=== PATIENT | female | born 1940 | race African-American/Black ===

== ENCOUNTER 2016-08-16 10:58 | Emergency (ER) | payer OTHER ==
[~2016-08-16] VITALS: Ht 167.6 cm; Wt 86.2 kg
[~2016-08-16 10:58] MED LIST: EPOE1VIA7 IJ; FERR-58 PO; FOLI1TAB16 PO; HUM3INSU SQ; LABE100T PO
--- NOTE | 2016-08-16 11:15 | NUR ---
AAOX3, CAME TO ER C/O L BREAST DISCOLORATION/BRUISE; NOTED LAST NIGHT; NO TRAUMA; NO PAIN; NO FEVER OR CHILLS; ESRD - DIALYSIS - DONE 08/14/2016. RESP IS EVEN AND UNLABORED WITH NAD NOTED. SKIN IS WARM AND DRY. DR INFANTE AT BS FOR EVAL.
[2016-08-16 11:34] LABS: BASOPHILS % (AUTO) 0.3 % (0.0-2.0); EOSINOPHILS # (AUTO) 0.3 /CMM (0.0-0.7); EOSINOPHILS % (AUTO) 4.6 % (0.0-6.0); HEMATOCRIT 35 % (33-45); HEMOGLOBIN 11.3 g/dL (11.5-14.8); LYMPHOCYTES # (AUTO) 1.3 /CMM (0.8-4.8); LYMPHOCYTES % (AUTO) 18.2 % (20.0-44.0); MEAN CORPUSCULAR HEMOGLOBIN 28 PG (26.0-33.0); MEAN CORPUSCULAR HGB CONC 32 g/dl (31.0-36.0); MEAN CORPUSCULAR VOLUME 87 fL (82-100); MONOCYTES # (AUTO) 0.8 /CMM (0.1-1.30); MONOCYTES % (AUTO) 10.4 % (2.0-12.0); NEUTROPHILS # (AUTO) 4.9 /CMM (1.8-8.9); NEUTROPHILS % (AUTO) 66.5 % (43.0-81.0); PLATELET COUNT (AUTO) 237 /CMM (150-450); RDW COEFFICIENT OF VARIATION 13.4 (11.5-15.0); RED BLOOD CELL COUNT(AUTO) 4.02 MIL/uL (4.0-5.2); WHITE BLOOD COUNT (AUTO) 7.4 K/uL (4.3-11.0)
[2016-08-16 11:43] LABS: CALCIUM, SERUM 9.1 mg/dL (8.5-10.1); CREATININE 6.6 mg/dL (0.6-1.3); POTASSIUM 4.2 mmol/L (3.5-5.1)
[2016-08-16 11:49] LABS: INR 1.07 (0.87-1.13); PROTHROMBIN TIME 11.1 SECS (9.5-12.7)
--- NOTE | 2016-08-16 12:44 | NUR ---
Patient discharged to home in stable condition. Written and verbal after care instructions given. Patient verbalizes understanding of instruction.
[2016-08-16 12:45] VITALS: BP 132/76
== END 2016-08-16 12:45 | disposition home or self-care (01) ==
LOC: ER 11:04
DX: R23.3 Spontaneous ecchymoses (principal); E11.9 Type 2 diabetes mellitus without complications; I10 Essential (primary) hypertension; Z79.4 Long term (current) use of insulin; Z88.8 Allergy status to other drugs, medicaments and biological substances
CPT/HCPCS: 36415; 80048-TC; 85025-TC; 85730-TC; A4606; Z7610

== ENCOUNTER 2016-09-15 21:12 | Emergency (ER) | payer OTHER ==
[~2016-09-15] VITALS: Ht 162.6 cm; Wt 63.5 kg
--- NOTE | 2016-09-15 21:55 | NUR ---
PT AMBULATORY TO ER BED 6 PT C/O HEAD PAIN S/P FALLING YESTERDAY PT DENIES LOC. PT AOX4 RR EVEN AND UNLABORED. NO SOB NOTED. NAD NOTED. NO NVD AT THIS TIME. PT NOT DIAPHORETIC. PT GOWNED AND PLACED ON MONITOR. PT NOTED WITH LFA HD SITE, THRILL AND BRUIT NOTED. PT ALSO NOTED WITH BLE SWELLING. PT WAITING FOR MD SANDRA.
--- NOTE | 2016-09-15 22:10 | NUR ---
DR. MOTLEY AT BEDSIDE FOR EVAL.
--- NOTE | 2016-09-15 22:21 | NUR ---
LAB AT BEDSIDE FOR BLOOD DRAW.
--- NOTE | 2016-09-15 22:33 | NUR ---
PT TO CT VIA W/C
[2016-09-15 22:44] LABS: BASOPHILS % (AUTO) 0.5 % (0.0-2.0); EOSINOPHILS # (AUTO) 0.3 /CMM (0.0-0.7); EOSINOPHILS % (AUTO) 4.9 % (0.0-6.0); HEMATOCRIT 31 % (33-45); HEMOGLOBIN 9.9 g/dL (11.5-14.8); LYMPHOCYTES # (AUTO) 1.8 /CMM (0.8-4.8); MEAN CORPUSCULAR HEMOGLOBIN 28 PG (26.0-33.0); MEAN CORPUSCULAR HGB CONC 33 g/dl (31.0-36.0); MEAN CORPUSCULAR VOLUME 87 fL (82-100); MONOCYTES # (AUTO) 0.8 /CMM (0.1-1.30); MONOCYTES % (AUTO) 11.1 % (2.0-12.0); NEUTROPHILS # (AUTO) 3.9 /CMM (1.8-8.9); NEUTROPHILS % (AUTO) 57.5 % (43.0-81.0); PLATELET COUNT (AUTO) 225 /CMM (150-450); RDW COEFFICIENT OF VARIATION 14.6 (11.5-15.0); RED BLOOD CELL COUNT(AUTO) 3.51 MIL/uL (4.0-5.2); WHITE BLOOD COUNT (AUTO) 6.8 K/uL (4.3-11.0)
[2016-09-15 22:57] LABS: INR 1.02 (0.87-1.13); PROTHROMBIN TIME 10.9 SECS (9.5-12.7)
[2016-09-15 22:59] LABS: CALCIUM, SERUM 8.9 mg/dL (8.5-10.1); CARBON DIOXIDE 28 mmol/L (21-32); CHLORIDE 97 mmol/L (98-107); CREATININE 6.7 mg/dL (0.6-1.3); GLUCOSE 87 mg/dL (74-106); POTASSIUM 4.7 mmol/L (3.5-5.1); SODIUM SERUM 135 mmol/L (136-145); UREA NITROGEN, BLOOD 35 mg/dL (7-18)
[2016-09-15 23:50] VITALS: BP 160/74
== END 2016-09-15 23:53 | disposition home or self-care (01) ==
LOC: ER 21:12
DX: R51 Headache (principal); S09.90XA Unspecified injury of head, initial encounter; E11.9 Type 2 diabetes mellitus without complications; I10 Essential (primary) hypertension; M31.6 Other giant cell arteritis; Z79.4 Long term (current) use of insulin; M48.02 Spinal stenosis, cervical region; W01.198A Fall on same level from slipping, tripping and stumbling with subsequent striking against other object, initial encounter; Y92.89 Other specified places as the place of occurrence of the external cause; Y93.89 Activity, other specified; Y99.8 Other external cause status; Z88.8 Allergy status to other drugs, medicaments and biological substances
CPT/HCPCS: 36415; 70450; 72125; 80048; 85025; 85610; 99285; A4606; Z7610

== ENCOUNTER 2016-09-19 16:59 | Emergency (ER) | payer OTHER ==
[~2016-09-19] VITALS: Ht 167.6 cm; Wt 86.2 kg
[2016-09-19 16:59] VITALS: BP 159/77
== END 2016-09-19 17:57 | disposition home or self-care (01) ==
LOC: ER 17:01
DX: L76.22 Postprocedural hemorrhage of skin and subcutaneous tissue following other procedure (principal); I12.0 Hypertensive chronic kidney disease with stage 5 chronic kidney disease or end stage renal disease; E11.22 Type 2 diabetes mellitus with diabetic chronic kidney disease; N18.6 End stage renal disease; Z88.8 Allergy status to other drugs, medicaments and biological substances; N64.59 Other signs and symptoms in breast; Z79.4 Long term (current) use of insulin
CPT/HCPCS: 99282; A4606; Z7610

== ENCOUNTER 2016-10-19 04:10 | Emergency (ER) | payer OTHER | END 2016-10-19 04:42 | disposition left against medical advice (07) | LOC: ER 04:16 | DX: Z53.21 Procedure and treatment not carried out due to patient leaving prior to being seen by health care provider (principal) ==

== ENCOUNTER 2017-02-05 22:42 | Emergency (ER) | payer OTHER ==
[~2017-02-05] VITALS: Ht 167.6 cm; Wt 108.9 kg
[2017-02-05 22:42] VITALS: BP 143/76
[2017-02-05] MEDS ORDERED: TDAP [DIPH/PERTUSSIS/TET] 0.5 ML VIAL IM ONE ×2 (23:04→23:30)
[2017-02-05] MEDS ORDERED: KETOROLAC TROMETHAMINE INJ 30 MG/ML VIAL ONE (23:14)
[2017-02-05] MEDS ORDERED: KETOROLAC TROMETHAMINE INJ 30 MG/ML VIAL IV ONE (23:30)
== END 2017-02-05 23:21 | disposition home or self-care (01) ==
LOC: ER 22:42
DX: S90.415A Abrasion, left lesser toe(s), initial encounter (principal); I12.9 Hypertensive chronic kidney disease with stage 1 through stage 4 chronic kidney disease, or unspecified chronic kidney disease; E11.22 Type 2 diabetes mellitus with diabetic chronic kidney disease; N18.9 Chronic kidney disease, unspecified; Z99.2 Dependence on renal dialysis; Z23 Encounter for immunization; Z88.8 Allergy status to other drugs, medicaments and biological substances; Z98.890 Other specified postprocedural states; Z79.4 Long term (current) use of insulin; X58.XXXA Exposure to other specified factors, initial encounter; Y93.89 Activity, other specified; Y92.89 Other specified places as the place of occurrence of the external cause; Y99.8 Other external cause status
CPT/HCPCS: 90471; 90715; 99283; A4606; J1885; A6402; Z7610

== ENCOUNTER 2017-02-20 04:16 | Emergency (ER) | payer OTHER ==
[~2017-02-20] VITALS: Ht 167.6 cm; Wt 89.4 kg
[2017-02-20] MEDS ORDERED: hydrALAZINE HCL IV 20 MG VIAL ONE (04:36)
--- NOTE | 2017-02-20 04:50 | NUR ---
PT CAME FROM NURSING FACILITY, C/O FEELING DIZZY, PT A/O X 4, BREATHING EVEN/UNLABORED, FISTUA TO L WRIST [facility] DIALYS[facility] M/W/F, BLE EDEMA, SKIN WARM/DRY, NO C/O PAIN STATES " I STOOD UP, AND WAS BESIDE MY DRESSER AND FELT MYSELF GOING BACK AND FORTH"
[2017-02-20 04:58] LABS: BASOPHILS % (AUTO) 0.7 % (0.0-2.0); EOSINOPHILS # (AUTO) 0.3 /CMM (0.0-0.7); EOSINOPHILS % (AUTO) 4.4 % (0.0-6.0); HEMATOCRIT 36 % (33-45); HEMOGLOBIN 11.6 g/dL (11.5-14.8); LYMPHOCYTES # (AUTO) 1.3 /CMM (0.8-4.8); MEAN CORPUSCULAR HEMOGLOBIN 28 PG (26.0-33.0); MEAN CORPUSCULAR HGB CONC 33 g/dl (31.0-36.0); MEAN CORPUSCULAR VOLUME 86 fL (82-100); MONOCYTES # (AUTO) 0.6 /CMM (0.1-1.30); MONOCYTES % (AUTO) 9.2 % (2.0-12.0); NEUTROPHILS % (AUTO) 64.7 % (43.0-81.0); PLATELET COUNT (AUTO) 181 /CMM (150-450); RDW COEFFICIENT OF VARIATION 15.2 (11.5-15.0); RED BLOOD CELL COUNT(AUTO) 4.17 MIL/uL (4.0-5.2); WHITE BLOOD COUNT (AUTO) 6.2 K/uL (4.3-11.0)
[2017-02-20] MEDS ORDERED: hydrALAZINE HCL IV 20 MG VIAL IV ONE (05:00)
--- NOTE | 2017-02-20 05:38 | NUR ---
LAB BEDSIDE FOR REDRAW AT THIS TIME
--- NOTE | 2017-02-20 05:55 | NUR ---
PT SITTING IN BED TALKING ON PHONE, BREATHING EVEN/UNLABORED, GAS TENDER IN PLACE NSR, NAD NOTED, FAMILY IS BEDSIDE
--- NOTE | 2017-02-20 05:58 | NUR ---
PT AMBULATED TO RESTROOM, NO GAIT DISTURBANCES
[2017-02-20 06:08] LABS: CALCIUM, SERUM 10.1 mg/dL (8.5-10.1); CARBON DIOXIDE 26 mmol/L (21-32); CHLORIDE 101 mmol/L (98-107); GLUCOSE 105 mg/dL (74-106); POTASSIUM 5.1 mmol/L (3.5-5.1); SODIUM SERUM 138 mmol/L (136-145); UREA NITROGEN, BLOOD 36 mg/dL (7-18)
[2017-02-20 06:11] LABS: CREATININE 7.6 mg/dL (0.6-1.3)
[2017-02-20 06:14] LABS: TROPONIN I 0.034 ng/mL (0.00-0.056)
--- NOTE | 2017-02-20 07:02 | NUR ---
PER CORNEL HINTON "OK TO KEEP UNTIL BEFORE NEW DIALYSIS APPOINTMENT TIME @0800
[2017-02-20 07:44] VITALS: BP 149/86
== END 2017-02-20 07:45 | disposition home or self-care (01) ==
LOC: ER 04:17
DX: I10 Essential (primary) hypertension (principal); E11.9 Type 2 diabetes mellitus without complications; N19 Unspecified kidney failure; Z79.4 Long term (current) use of insulin; Z99.2 Dependence on renal dialysis; Z88.8 Allergy status to other drugs, medicaments and biological substances
CPT/HCPCS: 36415; 70450; 71010; 80048; 82962; 84484; 85025; 93005; 96374; 99285; A4606; J0360; Z7610

== ENCOUNTER 2017-08-02 00:48 | Emergency (ER) | payer MEDICARE, OTHER ==
[~2017-08-02] VITALS: Ht 167.6 cm; Wt 89.4 kg
[~2017-08-02 00:48] MED LIST changes: -FERR-58 PO; +FERR325T27 PO; -LABE100T PO; +LABE100T5 PO
--- NOTE | 2017-08-02 00:48 | NUR ---
BB SELF; "NOSE BLEED SINCE9 PM" VSS NAD A/OX4. WILL CONTINUE TO MONITOR FOR ANY CHANGES DURING THE SHIFT.
[2017-08-02 01:31] VITALS: BP 156/76
== END 2017-08-02 02:36 | disposition home or self-care (01) ==
LOC: ER 00:51
DX: R04.0 Epistaxis (principal); Z79.4 Long term (current) use of insulin; I12.9 Hypertensive chronic kidney disease with stage 1 through stage 4 chronic kidney disease, or unspecified chronic kidney disease; E11.22 Type 2 diabetes mellitus with diabetic chronic kidney disease; N18.9 Chronic kidney disease, unspecified; Z88.8 Allergy status to other drugs, medicaments and biological substances; Z99.2 Dependence on renal dialysis
CPT/HCPCS: A4606; Z7610

== ENCOUNTER 2017-09-09 21:10 | Emergency (ER) | payer MEDICARE, OTHER ==
[~2017-09-09] VITALS: Ht 167.6 cm; Wt 81.6 kg
--- NOTE | 2017-09-09 21:49 | NUR ---
PT BIBSELF AMBULATORY TO ER BED 11 FOR "DARK STOOLS X2 TODAY AFTER TAKING KAYEXALATE YESTERDAY AT [facility]" "MISSED DIALYSIS TODAY DUE TO DIARRHEA" PT AOX3 RR EVEN AND UNLABORED. NO SOB NOTED. NAD NOTED. NO NVD AT THIS TIME. PT GOWNED AND PLACED ON MONITOR WAITING FOR MD SANDRA.
--- NOTE | 2017-09-09 22:21 | NUR ---
DR. ROBERT AT BEDSIDE FOR MD BOAZ AT BEDSIDE FOR OCCULT STOOL CHECK.
--- NOTE | 2017-09-09 22:32 | NUR ---
LAB AT BEDSIDE FOR BLOOD DRAW
[2017-09-09 22:40] LABS: BASOPHILS % (AUTO) 0.4 % (0.0-2.0); EOSINOPHILS % (AUTO) 3.4 % (0.0-6.0); HEMATOCRIT 31 % (33-45); HEMOGLOBIN 10.2 g/dL (11.5-14.8); LYMPHOCYTES # (AUTO) 1.3 /CMM (0.8-4.8); LYMPHOCYTES % (AUTO) 20.8 % (20.0-44.0); MEAN CORPUSCULAR HGB CONC 33 g/dl (31.0-36.0); MEAN CORPUSCULAR VOLUME 85 fL (82-100); MONOCYTES # (AUTO) 0.6 /CMM (0.1-1.30); MONOCYTES % (AUTO) 8.8 % (2.0-12.0); NEUTROPHILS # (AUTO) 4.3 /CMM (1.8-8.9); NEUTROPHILS % (AUTO) 66.6 % (43.0-81.0); PLATELET COUNT (AUTO) 256 /CMM (150-450); RDW COEFFICIENT OF VARIATION 17.3 (11.5-15.0); RED BLOOD CELL COUNT(AUTO) 3.61 MIL/uL (4.0-5.2); WHITE BLOOD COUNT (AUTO) 6.4 K/uL (4.3-11.0)
[2017-09-09 22:56] LABS: OCCULT BLOOD STOOL POSITIVE (NEGATIVE)
[2017-09-09 23:02] LABS: ALANINE AMINOTRANSFERASE 15 U/L (12-78); ALBUMIN 3.4 g/dL (3.4-5.0); ALKALINE PHOSPHATASE 94 U/L (46-116); ASPARTATE AMINOTRANSFERASE 19 U/L (15-37); BILIRUBIN,DIRECT 0.1 mg/dL (0.0-0.2); BILIRUBIN,TOTAL 0.4 mg/dL (0.2-1.0); CALCIUM, SERUM 8.6 mg/dL (8.5-10.1); CARBON DIOXIDE 20 mmol/L (21-32); CHLORIDE 98 mmol/L (98-107); GLUCOSE 104 mg/dL (74-106); POTASSIUM 4.8 mmol/L (3.5-5.1); SODIUM SERUM 135 mmol/L (136-145); TOTAL PROTEIN, SERUM 8.3 g/dL (6.4-8.2); UREA NITROGEN, BLOOD 69 mg/dL (7-18)
[2017-09-09 23:03] LABS: CREATININE 8.7 mg/dL (0.6-1.3)
[2017-09-09 23:04] LABS: MAGNESIUM 1.9 mg/dL (1.8-2.4); PHOSPHORUS 6.6 mg/dL (2.5-4.9)
[2017-09-09] MEDS ORDERED: CLONIDINE HCL 0.1 MG TABLET PO ONE (23:30)
[2017-09-09] MEDS ORDERED: CLONIDINE HCL 0.1 MG TABLET ONE (23:30)
--- NOTE | 2017-09-09 23:50 | NUR ---
PT PROVIDED WITH FOOD. RAY PER DR. ROBERT.
--- NOTE | 2017-09-10 00:10 | NUR ---
DPatient discharged to home in stable condition. Written and verbal after care instructions given. Patient verbalizes understanding of instruction. ambulatory with a steady gait
[2017-09-10 00:11] VITALS: BP 163/79
== END 2017-09-10 00:12 | disposition home or self-care (01) ==
LOC: ER 21:15
DX: K92.2 Gastrointestinal hemorrhage, unspecified (principal); D64.9 Anemia, unspecified; I12.0 Hypertensive chronic kidney disease with stage 5 chronic kidney disease or end stage renal disease; E11.22 Type 2 diabetes mellitus with diabetic chronic kidney disease; N18.6 End stage renal disease; Z88.8 Allergy status to other drugs, medicaments and biological substances; Z79.4 Long term (current) use of insulin
CPT/HCPCS: 36415; 80048-TC; 80076-TC; 82272-TC; 83735-TC; 84100-TC; 85025-TC; 86850-TC; A4606; Z7610

== ENCOUNTER 2017-09-13 19:49 | Emergency (ER) | payer MEDICARE, OTHER ==
[~2017-09-13] VITALS: Ht 167.6 cm; Wt 88.9 kg
--- NOTE | 2017-09-13 20:00 | NUR ---
BB SELF C/C OF NOSE BLEED X 2 HOURS S/P CAUTERIZATION 2 WEEKSS AGO +HEADACHE PAIN ACROSS FOREHEAD. -N/V
[2017-09-13] MEDS ORDERED: DESMOPRESSIN IV ONE (21:30)
[2017-09-13] MEDS ORDERED: NS 0.9% IV ONE (21:30)
[2017-09-13 22:00] LABS: BASOPHILS % (AUTO) 0.3 % (0.0-2.0); EOSINOPHILS % (AUTO) 2.6 % (0.0-6.0); HEMATOCRIT 30 % (33-45); HEMOGLOBIN 9.8 g/dL (11.5-14.8); LYMPHOCYTES # (AUTO) 1.6 /CMM (0.8-4.8); LYMPHOCYTES % (AUTO) 20.8 % (20.0-44.0); MEAN CORPUSCULAR HGB CONC 32 g/dl (31.0-36.0); MEAN CORPUSCULAR VOLUME 87 fL (82-100); MONOCYTES # (AUTO) 0.6 /CMM (0.1-1.30); MONOCYTES % (AUTO) 8.4 % (2.0-12.0); NEUTROPHILS # (AUTO) 5.2 /CMM (1.8-8.9); NEUTROPHILS % (AUTO) 67.9 % (43.0-81.0); PLATELET COUNT (AUTO) 226 /CMM (150-450); RDW COEFFICIENT OF VARIATION 17.1 (11.5-15.0); WHITE BLOOD COUNT (AUTO) 7.7 K/uL (4.3-11.0)
[2017-09-13 22:15] LABS: CALCIUM, SERUM 8.7 mg/dL (8.5-10.1); CARBON DIOXIDE 22 mmol/L (21-32); CHLORIDE 99 mmol/L (98-107); CREATININE 6.6 mg/dL (0.6-1.3); GLUCOSE 102 mg/dL (74-106); POTASSIUM 5.3 mmol/L (3.5-5.1); SODIUM SERUM 132 mmol/L (136-145); UREA NITROGEN, BLOOD 54 mg/dL (7-18)
[2017-09-13] MEDS ORDERED: DESMOPRESSIN 4 MCG/ML AMPUL ONE (22:18)
[2017-09-13 22:21] LABS: ALANINE AMINOTRANSFERASE 15 U/L (12-78); ALBUMIN 3.6 g/dL (3.4-5.0); ALKALINE PHOSPHATASE 89 U/L (46-116); ASPARTATE AMINOTRANSFERASE 21 U/L (15-37); BILIRUBIN,DIRECT 0.1 mg/dL (0.0-0.2); BILIRUBIN,TOTAL 0.4 mg/dL (0.2-1.0); TOTAL PROTEIN, SERUM 8.4 g/dL (6.4-8.2)
[2017-09-13 22:22] LABS: TROPONIN I 0.017 ng/mL (0.00-0.056)
--- NOTE | 2017-09-13 23:02 | NUR ---
DDAVP 24 MCG GIVEN 6AMP REMAINING IN OMNICELL TIFFANIE COMMERCIAL LENDING ASSISTANT AWARE
--- NOTE | 2017-09-13 23:09 | NUR ---
Patient does not wish to proceed with medical care recommended by (TIFFANIE BELLO ). Patient given information related to possible complications, up to and including , which could occur as a result of leaving the hospital at this time. Patient verbalizes understanding of risks involved due to leaving against medical advice. Patient has signed AMA form.
--- NOTE | 2017-09-13 23:09 | NUR ---
IV removed. Catheter intact and site benign. Pressure and 4x4 applied to site. No bleeding noted.
[2017-09-13 23:12] VITALS: BP 143/80
== END 2017-09-13 23:13 | disposition left against medical advice (07) ==
LOC: ER 19:50
DX: R07.89 Other chest pain (principal); R04.0 Epistaxis; D64.9 Anemia, unspecified; E87.5 Hyperkalemia; Z53.20 Procedure and treatment not carried out because of patient's decision for unspecified reasons; Z88.8 Allergy status to other drugs, medicaments and biological substances
CPT/HCPCS: 36415; 71045-TC; 80048-TC; 80076-TC; 84484-TC; 85025-TC; 85730-TC; 87081-TC; A4216; A4606; J2597; J7060; Z7610

== ENCOUNTER 2017-11-05 17:41 | Emergency (ER) | payer MEDICARE, OTHER ==
[~2017-11-05] VITALS: Ht 167.6 cm; Wt 91.2 kg
--- NOTE | 2017-11-05 18:11 | NUR ---
RECIEVED PT TO ED BED 03, PT IS C/O LEFT LEG LUMP AND PAIN X 1 WEEK, AND SHE IS CONCERNED ABOUT DVT. PT DENIES INJURY. NAD. ALL NEEDS ARE ATTENDED, KEPT COMFORTABLE. SEEN AND EVALUATED BY JANA
[2017-11-05 21:07] VITALS: BP 168/78
== END 2017-11-05 21:07 | disposition home or self-care (01) ==
LOC: ER 17:51
DX: M17.12 Unilateral primary osteoarthritis, left knee (principal); I10 Essential (primary) hypertension; E11.9 Type 2 diabetes mellitus without complications; Z99.2 Dependence on renal dialysis; Z98.890 Other specified postprocedural states; Z88.8 Allergy status to other drugs, medicaments and biological substances; Z60.2 Problems related to living alone; Z79.4 Long term (current) use of insulin
CPT/HCPCS: 73590; 93971; 99284; A4606; Z7610

== ENCOUNTER 2017-11-13 04:11 | Emergency (ER) | payer MEDICARE, OTHER ==
[~2017-11-13] VITALS: Ht 167.6 cm; Wt 88.9 kg
--- NOTE | 2017-11-13 04:20 | NUR ---
pt bib son. pt c/o nose bleed. per pt nose bleed had started earlier in the day, had to miss her dialysis due to her nose bleed. then stopped for some time while at home, but started up again around 1am that has not stopped since then. applied a clamp on the nose to help stop the bleeding. pt waiting comfortably in bed, waiting to be seen by md. Addendum: 11/13/17 at 0511 by KADEEM correction to notes: pt's dialysis was scheuduled at 4am, was unable to have her dialysis bc of her nosebleed that started at 1am, not earlier in the day.
--- NOTE | 2017-11-13 04:25 | NUR ---
pt seen by md. vs stable. pt comfortably in bed. no s/s of acute distress or sob noted.
--- NOTE | 2017-11-13 04:35 | NUR ---
noseclamp applied to nose to help stop the nosebleed. will reasses later to see if the bleeding stopped.
--- NOTE | 2017-11-13 05:30 | NUR ---
seen by md at bedside. the nose clamp has been removed. the nosebleed has subsided, noticebly bleeding less. will monitor to see if the bleeding continues with the noseclamp off.
--- NOTE | 2017-11-13 06:23 | NUR ---
called pt's son nelson to come supervisor opening and picking his mom from the ER. pt is being discharged back home.
--- NOTE | 2017-11-13 06:50 | NUR ---
Patient discharged to home in stable condition. Written and verbal after care instructions given. Patient verbalizes understanding of instruction. Patient was picked up by son. Patient left facility via wheelchair accompanied by staff member. Transported to car safely. No s/s of acute distress or sob noted. VS stable.
[2017-11-13 06:59] VITALS: BP 160/84
== END 2017-11-13 07:01 | disposition home or self-care (01) ==
LOC: ER 04:12
DX: R04.0 Epistaxis (principal); I65.21 Occlusion and stenosis of right carotid artery; E11.9 Type 2 diabetes mellitus without complications; I10 Essential (primary) hypertension; Z99.2 Dependence on renal dialysis; Z88.8 Allergy status to other drugs, medicaments and biological substances; Z60.2 Problems related to living alone; Z79.4 Long term (current) use of insulin
CPT/HCPCS: 99283; A4606; Z7610

== ENCOUNTER 2018-01-20 08:48 | Emergency (ER) | payer OTHER ==
[~2018-01-20] VITALS: Ht 167.6 cm; Wt 88.9 kg
--- NOTE | 2018-01-20 09:03 | NUR ---
[facility], staff noted pt was unresponsive in chair. PT REPORTS FEELING DIZZY DURING DIALYSIS. PT AAOX3, VSS. DENIES CP, SOB, DIZZINESS, N/V, THEODORE, ABD PAIN OR ANY OTHER DISCOMFORT. PT STS " I'M FEELING GOOD ". PT SEEN & EVAL'D BY DR. YANG. PLACED ON FEED MILL MANAGER, NO ECTOPY NOTED. WILL CONT TO MONITOR. SON @ BS.
[2018-01-20 09:16] LABS: BASOPHILS % (AUTO) 0.5 % (0.0-2.0); EOSINOPHILS % (AUTO) 3.1 % (0.0-6.0); HEMATOCRIT 35 % (33-45); HEMOGLOBIN 11.3 g/dL (11.5-14.8); LYMPHOCYTES # (AUTO) 1.2 /CMM (0.8-4.8); LYMPHOCYTES % (AUTO) 22.3 % (20.0-44.0); MEAN CORPUSCULAR HGB CONC 32 g/dl (31.0-36.0); MEAN CORPUSCULAR VOLUME 81 fL (82-100); MONOCYTES # (AUTO) 0.5 /CMM (0.1-1.30); MONOCYTES % (AUTO) 9.3 % (2.0-12.0); NEUTROPHILS # (AUTO) 3.3 /CMM (1.8-8.9); NEUTROPHILS % (AUTO) 64.8 % (43.0-81.0); PLATELET COUNT (AUTO) 219 /CMM (150-450); RDW COEFFICIENT OF VARIATION 16.4 (11.5-15.0); RED BLOOD CELL COUNT(AUTO) 4.29 MIL/uL (4.0-5.2); WHITE BLOOD COUNT (AUTO) 5.2 K/uL (4.3-11.0)
[2018-01-20 09:24] LABS: CALCIUM, SERUM 9.6 mg/dL (8.5-10.1); CARBON DIOXIDE 30 mmol/L (21-32); CHLORIDE 98 mmol/L (98-107); CREATININE 3.9 mg/dL (0.6-1.3); GLUCOSE 115 mg/dL (74-106); POTASSIUM 3.5 mmol/L (3.5-5.1); SODIUM SERUM 136 mmol/L (136-145); UREA NITROGEN, BLOOD 16 mg/dL (7-18)
[2018-01-20 09:30] LABS: ALANINE AMINOTRANSFERASE 18 U/L (12-78); ALBUMIN 3.9 g/dL (3.4-5.0); ALKALINE PHOSPHATASE 92 U/L (46-116); ASPARTATE AMINOTRANSFERASE 25 U/L (15-37); BILIRUBIN,DIRECT 0.1 mg/dL (0.0-0.2); BILIRUBIN,TOTAL 0.4 mg/dL (0.2-1.0); LIPASE 132 U/L (73-393); TOTAL PROTEIN, SERUM 8.9 g/dL (6.4-8.2)
[2018-01-20 09:32] LABS: TROPONIN I 0.052 ng/mL (0.00-0.056)
[2018-01-20] MEDS ORDERED: ONDANSETRON HCL/PF 4 MG/2 ML VIAL ONE (09:53)
[2018-01-20] MEDS ORDERED: ONDANSETRON HCL/PF - ER 4 MG/2 ML VIAL IV ONE (10:00)
--- NOTE | 2018-01-20 10:15 | NUR ---
MEDICATED FOR NAUSEA PER ERMD ORDER, PT MAYRA WELL.
[2018-01-20] MEDS ORDERED: SEVE800T8 PO (10:23)
[2018-01-20] MEDS ORDERED: ATOR20TA PO (10:23)
[2018-01-20] MEDS ORDERED: AMLO10TA6 PO (10:23)
[2018-01-20] MEDS ORDERED: ASPI-1169 PO (10:23)
[2018-01-20] MEDS ORDERED: OLOP5DRO EACHEYE (10:23)
--- NOTE | 2018-01-20 10:36 | NUR ---
PT WATCHING TV, STS " THAT MEDICATION HELPED ". DENIES N/V, SOB, DIZZINESS, CP, WEAKNESS @ THIS TIME. WILL CONT TO MONITOR.
--- NOTE | 2018-01-20 11:17 | NUR ---
Report given to Kamilah MURILLO for continuity of care in telemetry unit
--- NOTE | 2018-01-20 12:15 | NUR ---
PT WATCHING TV, DENIES CP, SOB, DIZZINESS, N/V/D OR ANY OTHER DISCOMFORT @ THIS TIME. WILL CONT TO MONITOR.
--- NOTE | 2018-01-20 14:21 | NUR ---
PT ASLEEP, EASILY AWAKEN WITH VERBAL STIMULI BUT WILL GO BACK TO SLEEP. DENIES CP, SOB, DIZZINESS, N/V/D OR ANY OTHER DISCOMFORT @ THIS TIME. WILL CONT TO MONITOR.
--- NOTE | 2018-01-20 17:00 | NUR ---
Patient is resting comfortably in bed with eyes closed. Easily aroused. VSS
--- NOTE | 2018-01-20 18:55 | NUR ---
NUMBER FOR REPORT IS [phone]
[2018-01-20] MEDS ORDERED: HYDROCODONE/APAP 5/325MG 1 EACH TABLET PO ONE (19:00)
[2018-01-20] MEDS ORDERED: HYDROCODONE/APAP 5/325MG 1 EACH TABLET ONE (19:01)
--- NOTE | 2018-01-20 20:17 | NUR ---
GAVE REPORT TO GILSON MANZANO AND LIDIA ROBBINS AT [facility] FOR LAURENCE
[2018-01-20 20:18] VITALS: BP 175/78
== END 2018-01-20 20:21 | disposition short-term general hospital (02) ==
LOC: ER 08:49
DX: R55 Syncope and collapse (principal); I12.0 Hypertensive chronic kidney disease with stage 5 chronic kidney disease or end stage renal disease; E11.22 Type 2 diabetes mellitus with diabetic chronic kidney disease; N18.6 End stage renal disease; Z99.2 Dependence on renal dialysis; Z79.4 Long term (current) use of insulin; Z60.2 Problems related to living alone; Z88.8 Allergy status to other drugs, medicaments and biological substances; Z98.890 Other specified postprocedural states
CPT/HCPCS: 36415; 71045; 80048; 80076; 83690; 84484; 85025; 87081; 93005; 96374; 99285; A4606; J2405 ×2; Z7610

== ENCOUNTER 2018-07-23 04:11 | Inpatient (IN) | payer MEDICARE, MEDICAID ==
[2018-07-23] VITALS (46 sets, daily range): BP systolic 122–178; BP diastolic 56–130
[~2018-07-23] VITALS: Ht 162.6 cm; Wt 79.4 kg
[~2018-07-23 04:11] MED LIST changes: +AMLO10TA7 PO; +ASPI-1169 PO; +ATOR20TA PO; -EPOE1VIA7 IJ; -FOLI1TAB16 PO; -LABE100T5 PO; +OLOP5DRO EACHEYE; +SEVE800T8 PO
--- NOTE | 2018-07-23 04:15 | NUR ---
PT BIB RA WITH A C/O SOB. PT WAS 50% ON RA IN THE FIELD. PT ARRIVED ON CPAP. RT CALLED RAIL CREW MEMBER. DR MARTI IS AT THE BEDSIDE. IV INSERTION STARTED. PT IS TACHYPENIC WITH RESP 32.
--- NOTE | 2018-07-23 04:18 | NUR ---
RT IS AT THE BEDSIDE. PT IS BEING PLACED ON CPAP @10 WITH AN FIO2 OF 40%. 4 MORE ATTEMPTS AT IV INSERTION UNSUCCESSFUL. DR. MARTI IS AWARE. LAB IS STILL AT BEDSIDE TRYING TO DRAW. PT IS HAS A FISTULA ON THE LUE AND DRAW CAN NOT BE DONE ON THE LUE. PT'S RESP ARE NOW AT 24. HR IS 97.
[2018-07-23] MEDS ORDERED: Calcium Gluconate 1GM/10ML 4.65 MEQ in IV D5W 50 ML IV STA (04:24)
[2018-07-23] MEDS ORDERED: NTG 50 MG/D5W250 ML BOTTL 0 ML IV ONE (04:27)
[2018-07-23] MEDS ORDERED: IPRATROPIUM NEB FS 0.5 MG/2.5 ML AMPUL.NEB NEB ONE (04:30)
[2018-07-23] MEDS ORDERED: ALBUTEROL FS 2.5 MG/3 ML VIAL.NEB NEB ONE (04:30)
[2018-07-23] MEDS ORDERED: NTG 50 MG/D5W250 ML BOTTL 250 ML IV PRN ×2 (04:30→10:30)
[2018-07-23] MEDS ORDERED: Calcium Gluconate 1GM/10ML 4.65 MEQ in IV NS 0.9% 50 ML IV ONE (04:30)
--- NOTE | 2018-07-23 04:30 | NUR ---
CXR DONE AT THE BEDSIDE. HAND LOOM WEAVER IS STILL AT THE BEDSIDE. IV STILL NOT ESTABLISHED. MD IS AWARE.
[2018-07-23] MEDS ORDERED: ALBUTEROL FS 2.5 MG/3 ML VIAL.NEB ONE (04:32)
[2018-07-23] MEDS ORDERED: IPRATROPIUM NEB FS 0.5 MG/2.5 ML AMPUL.NEB ONE (04:32)
--- NOTE | 2018-07-23 05:00 | NUR ---
PT'S NITRO DRIP IS AT 50MCG/MIN.
[2018-07-23] MEDS ORDERED: Calcium Gluconate 0.465 MEQ/ML VIAL IV ONE ×2 (05:04→05:12)
[2018-07-23] MEDS ORDERED: NTG 50 MG/D5W250 ML BOTTL 250 ML IV ONE (05:04)
[2018-07-23 05:05] LABS: BASOPHILS # (AUTO) 0.1 /CMM (0.0-0.2); BASOPHILS % (AUTO) 0.6 % (0.0-2.0); EOSINOPHILS % (AUTO) 1.1 % (0.0-6.0); HEMATOCRIT 25 % (33-45); HEMOGLOBIN 8.3 g/dL (11.5-14.8); LYMPHOCYTES # (AUTO) 1.1 /CMM (0.8-4.8); LYMPHOCYTES % (AUTO) 7.6 % (20.0-44.0); MEAN CORPUSCULAR HGB CONC 33 g/dl (31.0-36.0); MEAN CORPUSCULAR VOLUME 86 fL (82-100); MONOCYTES # (AUTO) 0.5 /CMM (0.1-1.30); MONOCYTES % (AUTO) 3.4 % (2.0-12.0); NEUTROPHILS # (AUTO) 12.8 /CMM (1.8-8.9); NEUTROPHILS % (AUTO) 87.3 % (43.0-81.0); PLATELET COUNT (AUTO) 275 /CMM (150-450); RED BLOOD CELL COUNT(AUTO) 2.94 MIL/uL (4.0-5.2); WHITE BLOOD COUNT (AUTO) 14.6 K/uL (4.3-11.0)
--- NOTE | 2018-07-23 05:12 | NUR ---
PT'S NITRO DRIP WAS DECREASED BY LIDIA PATTON TO 25MCG/MIN.
[2018-07-23 05:15] LABS: CALCIUM, SERUM 8.7 mg/dL (8.5-10.1); CARBON DIOXIDE 25 mmol/L (21-32); CHLORIDE 101 mmol/L (98-107); CREATININE 6.9 mg/dL (0.6-1.3); GLUCOSE 197 mg/dL (74-106); POTASSIUM 4.6 mmol/L (3.5-5.1); SODIUM SERUM 135 mmol/L (136-145); UREA NITROGEN, BLOOD 35 mg/dL (7-18)
--- NOTE | 2018-07-23 05:17 | NUR ---
PT'S SON IS AT THE BEDSIDE.
--- NOTE | 2018-07-23 05:17 | NUR ---
PT'S SON STATED THAT THE PT WAS TO GET HD THIS AM. DR MARTI IS AWARE.
[2018-07-23 05:28] LABS: ALANINE AMINOTRANSFERASE 32 U/L (12-78); ALBUMIN 3.3 g/dL (3.4-5.0); ALKALINE PHOSPHATASE 96 U/L (46-116); ASPARTATE AMINOTRANSFERASE 24 U/L (15-37); B-TYPE NATRIURETIC PEPTIDE 38505 PG/ML (0-125); BILIRUBIN,DIRECT 0.2 mg/dL (0.0-0.2); BILIRUBIN,TOTAL 0.4 mg/dL (0.2-1.0); TOTAL PROTEIN, SERUM 7.7 g/dL (6.4-8.2)
--- NOTE | 2018-07-23 05:33 | NUR ---
RT IS AT THE BEDSIDE. PT WAS REMOVED FROM CPAP AND IS 98% ON RA. NO WHEEZES NOTED. PT IS SPEAKING IN FULL SENTENCES. DR MARTI IS AT THE BEDSIDE SPEAKING TO THE PT RE: THE RIVERS CATH. PT DOES NOT WANT AN INDWELLING CATHETER.
--- NOTE | 2018-07-23 05:36 | NUR ---
PT AGREED TO AN INDWELLING CATHETER
--- NOTE | 2018-07-23 05:40 | NUR ---
STARTING RIVERS CATH INSERTION
--- NOTE | 2018-07-23 05:43 | NUR ---
PT'S NITRO DRIP WAS INCREASED TO 30 MCG/MIN BY LIDIA PATTON
[2018-07-23] MEDS ORDERED: FUROSEMIDE 40 MG/4 ML VIAL IV ONE (06:00)
[2018-07-23] MEDS ORDERED: FUROSEMIDE 40 MG/4 ML VIAL ONE (06:16)
[2018-07-23] MEDS ORDERED: HEPARIN INFUSION/D5W 500 ML IV ONE (06:20)
[2018-07-23] MEDS ORDERED: ASPIRIN 325 MG TABLET ONE (06:21)
[2018-07-23] MEDS ORDERED: HEPARIN SODIUM, PORCINE 5000 UNITS/1 ML VIAL ONE (06:21)
--- NOTE | 2018-07-23 06:25 | NUR ---
PT'S NITRO DRIP IS AT 25MCG/MIN.
[2018-07-23] MEDS ORDERED: HEPARIN SODIUM, PORCINE 5000 UNITS/1 ML VIAL IV ONE (06:30)
[2018-07-23] MEDS ORDERED: HEPARIN INFUSION/D5W 500 ML IV PRN ×2 (06:30→09:00)
[2018-07-23] MEDS ORDERED: ASPIRIN 81 MG TAB.CHEW PO ONE (06:30)
--- NOTE | 2018-07-23 06:31 | NUR ---
NITRO DRIP STOPPED BY LIDIA PATTON. PT REC'D LASIX IV.
--- NOTE | 2018-07-23 06:33 | NUR ---
RHYTHM CHANGE ON THE MONITOR. DR MARTI NOTIFIED. VERBAL ORDER FOR STAT EKG.
--- NOTE | 2018-07-23 06:35 | NUR ---
EKG IS THE SAME PREVIOUS
--- NOTE | 2018-07-23 06:36 | NUR ---
NITRO DRIP RESUMED AT 25MCG/MIN - RESTARTED BY LIDIA PATTON
[2018-07-23 07:00] LABS: APPEARANCE,URINE CLEAR (CLEAR); BILIRUBIN,URINE NEGATIVE (NEGATIVE); BLOOD, URINE 1+ Ery/uL (NEGATIVE); COLOR,URINE YELLOW (YELLOW); KETONES,URINE NEGATIVE (NEGATIVE); LEUKOCYTE ESTERASE ,URINE NEGATIVE (NEGATIVE); NITRITE, URINE NEGATIVE (NEGATIVE); PH,URINE 8.5 (5.0-8.0); PROTEIN,URINE 2+ mg/dl (NEGATIVE); UGLUCOSE 1+ mg/dL (NEGATIVE); UROBILINOGEN,URINE 0.2 EU/dL (0.2)
--- NOTE | 2018-07-23 07:00 | NUR ---
DR MARTI SPOKE TO DR. FELICIANO, NEPHROLOGY AND DR. NASSAR, CARDIOLOGY
--- NOTE | 2018-07-23 07:08 | NUR ---
CALLED ICU FOR REPORT. FILLING STATION EQUIPMENT MECHANIC TO CALL BACK FOR REPORT.
--- NOTE | 2018-07-23 07:16 | NUR ---
NITRO DRIP STARTED BY LIDIA DE SANTIAGO/CHG.
--- NOTE | 2018-07-23 07:21 | NUR ---
GIVING REPORT TO ILDIA FRAZIER.
[2018-07-23 07:29] LABS: BACTERIA,URINE None seen /HPF (None Seen); RBC,URINE NONE SEEN /HPF (0-2); SQUAMOUS EPITHELIAL CELL,UR Few /HPF (None Seen); WBC,URINE NONE SEEN /HPF (0-3)
[2018-07-23] MEDS ORDERED: MAGNESIUM HYDROXIDE 30 ML UDC PO PRN (07:30)
[2018-07-23] MEDS ORDERED: ACETAMINOPHEN 325 MG TABLET PO PRN (07:30)
[2018-07-23] MEDS ORDERED: ONDANSETRON HCL/PF 4 MG/2 ML VIAL IVP PRN (07:30)
[2018-07-23] MEDS ORDERED: HYDROCODONE/APAP 5/325MG 1 EACH TABLET PO PRN (07:30)
[2018-07-23] MEDS ORDERED: CARV6.252 PO (07:38)
[2018-07-23] MEDS ORDERED: CLOP100P PO (07:38)
--- NOTE | 2018-07-23 07:38 | NUR ---
PT'S MAINTENANCE ENGINEER OIL FIELD DR. PATEL, MARYINO PROPELLER ENGINEER IS JOHN BRO
--- NOTE | 2018-07-23 08:07 | NUR ---
PT RESTING COMFORTABLY ON BIPAP SATURATION 100% PT NEEDS DIALYSIS TODAY HAS A AV SHUNT IN LEFT FA POSITIVE FOR BUREE AND THRILL PT ALERT AND ORIENTED FAMILY AT BEDSIDE TALKING TO MD COLEMAN PT HAS 20G PIV IN RFA RUNNING NTG AT 25 MCG/MIN AND NA HEPARIN AT 1125 UNITS FROM 72006 IN 500ML BAG. PT HAS RIVERS WITH SMALL AMOUNT OF CLEAR URINE WILL CONTINUE TO MONITOR ACCEPTED IN ICU .
--- NOTE | 2018-07-23 08:30 | NUR ---
EQUIPMENT ENGINEERING TECHNICIAN ADMITTED INTO ICU FROM ER BY CELESTINO WITH MONITOR. REPORT RECEIVED FROM ALISA IN ER. PT AWAKE AND ALERT. DENIES SOB. ON 2L NC WITH SPO2 IN HIGH 90'S. SR W/ 1ST DEG AVB W/ BBB PER MONITOR. F/C IN PLACE WITH 30 ML URINE. PT STATED THAT LAST HD WAS ON SATURDAY AND WAS SCHEDULED TO HAVE ONE DONE TODAY. NTG AND HEPARIN DRIPS INFUSING.
[2018-07-23] MEDS ORDERED: PANTOPRAZOLE 40 MG VIAL IV SCH (09:00)
--- NOTE | 2018-07-23 09:30 | NUR ---
RECEIVED CARE OF PATIENT FROM LIDIA DEAN. PATIENT RESTING COMFORTABLY IN BED. STATES SOB THIS AM WITH DESATURATION. ER HAD PT ON SHORT TERM CPAP AND RESPONDED WELL; NOW ON 2L NC SATURATING 100%. PATIENT DENIES SOB, DIFFICULTY BREATHING OR PAIN. SON AT BEDSIDE. PATIENT NOTED WITH HEPARIN GTT RUNNING 1125U/HOUR AND NITRO GTT 25MCG/MIN IV SITE C/D/I/P. NO S/S BLEEDING. PATIENT NEEDS ASSESSED AND MET. SAFETY, SKIN, ASPIRATION PRECAUTIONS IN PLACE AND WILL MONITOR. PENDING HD AND NEPHRO CONSULT THIS AM
--- NOTE | 2018-07-23 10:05 | NUR ---
SPOKE WITH DR COLEMAN. PER CONTINUE NITRO GTT UNTIL HD. ONCE HD STARTS PLEASE DC OK TO CONTINUE ORDERED PO MEDICATIONS
[2018-07-23] MEDS: CLOPIDOGREL BISULFATE 75 MG TABLET PO SCH (10:09)
[2018-07-23] MEDS: FERROUS SULFATE (325 MG) 325 MG/TAB TABLET PO SCH (10:09)
[2018-07-23] MEDS: SEVELAMER CARBONATE 800 MG TABLET PO SCH ×3 (10:09→17:29)
[2018-07-23] MEDS: OLOPATADINE HCL 0.1% OPHTH BOTTLE EACHEYE SCH (10:09)
[2018-07-23] MEDS: CARVEDILOL 6.25 MG TABLET PO SCH ×2 (10:10→17:33)
[2018-07-23] MEDS: AMLODIPINE BESYLATE 2.5 MG TABLET PO SCH (10:11)
--- NOTE | 2018-07-23 13:38 | NUR ---
PATIENT TOLERATED HD. HEPARIN GTT PAUSED DURING HD PER CLINIC DIRECTOR. 1300 PTT RESULT 88.5. PER PROTOCOL WILL RESUME GTT AND DECREASE RATE BY 150 U/HOUR AND WILL NOW BE RUNNING AT 975U/HOUR. NEXT PTT AT 1930
[2018-07-23] MEDS: CEFTRIAXONE 1 G in IV D5W 50 ML IV SCH (13:57)
[2018-07-23] MEDS: AZITHROMYCIN 500 MG in IV D5W 250 ML IV SCH (15:12)
--- NOTE | 2018-07-23 15:20 | NUR ---
PER DR JOSÉ WALDRON TO ORDER CARDIAC/RENAL DIET FOR PATIENT.
[2018-07-23] MEDS: MAG HYDROX/AL HYDROX/SIMETH 30 ML UDC PO PRN (18:30)
--- NOTE | 2018-07-23 18:35 | NUR ---
ALL DUE MEDS GIVEN AND ALL NEEDS MET. PATIENT VSS. ROOM AIR STABLE. IV SITE C/D/I/P AND HEP GTT RUNNING PER MD ORDER. PENDING UPDATED PTT AT 1930. SLIGHT PINK TINGED FROM RIVERS S/P PATIENT ACCIDENTALLY PULLING ON RIVERS CATH; WILL MONITOR. NO ACTIVE SIGNS OF BLEEDING AT THIS TIME. WILL MONITOR. SAFETY, SKIN, ASPIRATION PRECAUTIONS IN PLACE AND MONITORED THROUGHOUT DAY. PATIENT MIN ASSIST TO BSC.
--- NOTE | 2018-07-23 18:42 | NUR ---
RIVERS CATH FLUSHED STERILE PROCEDURE. NO S/S BLEEDING. URINE CLEAR.
--- NOTE | 2018-07-23 18:44 | NUR ---
PER DR KUMAR OK TO START PATIENT ON ACHS MILD SLIDING SCALE.
[2018-07-23] MEDS ORDERED: DEXTROSE 50%-WATER 50 ML DISP.SYRIN IV PRN (19:00)
[2018-07-23] MEDS ORDERED: INSULIN REGULAR, HUMAN 100 UNIT/ML 3 ML VIAL SQ PRN (19:00)
[2018-07-23] MEDS: ATORVASTATIN 10 MG TABLET PO SCH (22:00)
[2018-07-23] MEDS: BLOOD SUGAR DIAGNOSTIC 1 EACH STRIP IN SCH (22:46)
[2018-07-24] VITALS (17 sets, daily range): BP systolic 118–152; BP diastolic 59–90
[2018-07-24 04:17] LABS: BASOPHILS % (AUTO) 0.4 % (0.0-2.0); EOSINOPHILS % (AUTO) 1.8 % (0.0-6.0); HEMATOCRIT 24 % (33-45); HEMOGLOBIN 8.1 g/dL (11.5-14.8); LYMPHOCYTES # (AUTO) 1.5 /CMM (0.8-4.8); LYMPHOCYTES % (AUTO) 15.4 % (20.0-44.0); MEAN CORPUSCULAR HGB CONC 34 g/dl (31.0-36.0); MEAN CORPUSCULAR VOLUME 85 fL (82-100); MONOCYTES # (AUTO) 1.1 /CMM (0.1-1.30); MONOCYTES % (AUTO) 10.9 % (2.0-12.0); NEUTROPHILS % (AUTO) 71.5 % (43.0-81.0); PLATELET COUNT (AUTO) 270 /CMM (150-450); RED BLOOD CELL COUNT(AUTO) 2.84 MIL/uL (4.0-5.2); WHITE BLOOD COUNT (AUTO) 9.8 K/uL (4.3-11.0)
[2018-07-24 04:31] LABS: CALCIUM, SERUM 8.8 mg/dL (8.5-10.1); CARBON DIOXIDE 29 mmol/L (21-32); CHLORIDE 101 mmol/L (98-107); CREATININE 5.6 mg/dL (0.6-1.3); GLUCOSE 96 mg/dL (74-106); MAGNESIUM 2.1 mg/dL (1.8-2.4); PHOSPHORUS 2.9 mg/dL (2.5-4.9); POTASSIUM 4.3 mmol/L (3.5-5.1); SODIUM SERUM 137 mmol/L (136-145); UREA NITROGEN, BLOOD 26 mg/dL (7-18)
[2018-07-24 04:52] LABS: CHOLESTEROL 106 mg/dL (<200); HDL CHOLESTEROL 60 mg/dL (40-60); LDL 44 mg/dL (0-99); THYROID STIMULATING HORMONE 3.198 uIU/mL (0.358-3.74); TRIGLYCERIDES 66 mg/dL (30-150)
--- NOTE | 2018-07-24 06:15 | NUR ---
PT REMAINS IN NO ACUTE DISTRESS IN BED. PT DID NOT HAVE ANY SIGNIFICANT CHANGE IN CONDITION DURING SHIFT. ALL NEEDS MET, ALL ORDERS CARRIED OUT. WILL ENDORSE2 CARE TO AM RN FOR CONTINUITY OF CARE.
--- NOTE | 2018-07-24 07:25 | NUR ---
received patient from cali roberts. patient awake and alert a/ox4. denies sob, difficulty breathing and pain at this time. iv site c/d/i/p and hep gtt running per md order. patient room air stable. hines cath to gravity; will f/u for dc. vss. no s/s active bleeding. patient skin, safety, aspiration precautions all in place and will monitor.
--- NOTE | 2018-07-24 07:50 | NUR ---
dr varela at bedside. updated on patient condition labs vs. per md sweet hines cath and dc heparin gtt. ok to transfer out of icu.
[2018-07-24] MEDS: BLOOD SUGAR DIAGNOSTIC 1 EACH STRIP IN SCH ×2 (08:29→12:36)
[2018-07-24] MEDS: Z GUARD REMEDY 2 OZ OINT TP PRN ×2 (08:29→09:29)
--- NOTE | 2018-07-24 08:40 | NUR ---
removed hines catheter per MD order, tip intact and patient tolerated well. pericare completed
[2018-07-24] MEDS: HEPARIN SODIUM, PORCINE 5000 UNITS/1 ML VIAL SQ SCH ×2 (09:00→21:00)
[2018-07-24] MEDS: PANTOPRAZOLE 40 MG TABLET.DR PO SCH (09:27)
[2018-07-24] MEDS: CLOPIDOGREL BISULFATE 75 MG TABLET PO SCH (09:27)
[2018-07-24] MEDS: ASPIRIN 81 MG TAB.CHEW PO SCH (09:27)
[2018-07-24] MEDS: AMLODIPINE BESYLATE 2.5 MG TABLET PO SCH (09:28)
[2018-07-24] MEDS: SEVELAMER CARBONATE 800 MG TABLET PO SCH ×4 (09:28→18:00)
[2018-07-24] MEDS: FERROUS SULFATE (325 MG) 325 MG/TAB TABLET PO SCH (09:28)
[2018-07-24] MEDS: CARVEDILOL 6.25 MG TABLET PO SCH ×3 (09:29→17:49)
--- NOTE | 2018-07-24 09:30 | NUR ---
per Dr. Ramirez hold heparin 0900 and give tonight
[2018-07-24] MEDS: OLOPATADINE HCL 0.1% OPHTH BOTTLE EACHEYE SCH (09:38)
[2018-07-24] MEDS: CEFTRIAXONE 1 G in IV D5W 50 ML IV SCH (12:36)
[2018-07-24] MEDS: AZITHROMYCIN 500 MG in IV D5W 250 ML IV SCH (13:05)
--- NOTE | 2018-07-24 13:25 | NUR ---
report given to adolph leiva for alejandro
--- NOTE | 2018-07-24 13:50 | NUR ---
patient transferred to med surg 317 for alejandro. care endorsed to adolph leiva for alejandro. vss. no complications noted. son nelson called and notified
--- NOTE | 2018-07-24 13:55 | NUR ---
RN MS NOTES RECEIVED PT FROM ICU NURSE YOSELYN RN VIA BED, PT IS AWAKE, ALERT AND ORIENTED, VERBALLY RESPONSIVE, NO SOB, TOLERATING ROOM AIR, ROOM SET UP ORIENTATION PROVIDED TO PT, VERBALIZED UNDERSTANDING, CALL LIGHT WITHIN REACH, IV SITE AT RIGHT WRIST INTACT AND PATENT, IV ATB INFUSING WELL, KEPT WARM AND COMFORTABLE IN BED, NEEDS ATTENDED.
--- NOTE | 2018-07-24 14:15 | NUR ---
per dr varela ok to dc accuchecks and insulin coverage.
[2018-07-24] MEDS: MAG HYDROX/AL HYDROX/SIMETH 30 ML UDC PO PRN (15:39)
[2018-07-24] MEDS: LACTOBACILLUS RHAMNOSUS GG 1 EACH CAP.SPRINK PO SCH ×2 (17:00→17:48)
--- NOTE | 2018-07-24 18:00 | NUR ---
Medication is not given because of on going dialysis.
--- NOTE | 2018-07-24 18:58 | NUR ---
LIDIA MEDSURJassi NOTES PT STILL ON DIALYSIS.
--- NOTE | 2018-07-24 19:30 | NUR ---
RN OPENING NOTES RECEIVED REPORT FROM MICHELLEWILUCHO RN SIMRAN. Pt WAS TRANSFERRED FROM ICU EARLIER TODAY. FOUND Pt AWAKE, RESTING IN BED. GETTING HD AT BEDSIDE. Pt IS A/OX4, VERBAL, ABLE TO MAKE NEEDS KNOWN. NO S/S OF ACUTE DISTRESS OR SOB NOTED. IV ACCESS ON R WRIST #20G, SL. LFA AV FISTULA. RIVERS CATH DISCONTINUED. SAFETY MEASURES IN PLACE. BED LOW, LOCKED, HOB ELEVATED, SIDE RAILS UP, CALL LIGHT AND BEDSIDE TABLE WITHIN REACH. BED ALARM ON. WILL CONTINUE TO MONITOR Pt's CONDITION AND SAFETY THROUGHOUT THE NIGHT.
[2018-07-24] MEDS: ATORVASTATIN 10 MG TABLET PO SCH (22:00)
--- NOTE | 2018-07-24 22:31 | NUR ---
RN NOTES Pt REFUSED TO TAKE LIPITOR MED. STATED THAT SHE HAD SOME KIND OF PROBLEM WITH IT YEARS AGO AND DIDNT WANT TO RISK IT AGAIN.
--- NOTE | 2018-07-24 22:32 | NUR ---
RN NOTES NON ADMINISTERED HEPARIN FOR TONIGHT. PER DAYSHIFT RN REPORT, STATED THAT HEPARIN WAS DISCONTINUED. AND PER DR COLEMAN's AM NOTES FROM 07/24, HE ALSO STATED D/C HEPARIN. Pt IS ALSO STARTED ON PLAVIX DAILY AM.
--- NOTE | 2018-07-25 07:20 | NUR ---
RN CLOSING NOTES NO SIGNIFICANT CHANGES IN Pt's CONDITION. Pt IS STABLE AT THIS TIME. NO S/S OF ACUTE DISTRESS OR SOB NOTED DURING THE SHIFT. Pt IS RESTING IN BED COMFORTABLY. RESPIRATIONS EVEN AND UNLABORED. ALL NEEDS MET AND ATTENDED TO. SAFETY MEASURES IN PLACE. WILL ENDORSE TO DAYSHIFT RN FOR Pt's LAURENCE.
--- NOTE | 2018-07-25 07:58 | NUR ---
RN MS OPENING NOTES Received patient on room air, no sob noted, vital signs stable. Patient lying down in bed comfortably and states that she is not in pain. I also called pharmacy to clarify about the heparin sub Q order to be given along with Plavix and they stated that it is okay to be given.
[2018-07-25 08:09] VITALS: BP 125/57
[2018-07-25] MEDS: CLOPIDOGREL BISULFATE 75 MG TABLET PO SCH (08:17)
[2018-07-25 08:20] VITALS: BP 125/57
[2018-07-25] MEDS: ASPIRIN 81 MG TAB.CHEW PO SCH (08:20)
[2018-07-25] MEDS: SEVELAMER CARBONATE 800 MG TABLET PO SCH (08:20)
[2018-07-25] MEDS: CARVEDILOL 6.25 MG TABLET PO SCH (08:20)
[2018-07-25] MEDS: FERROUS SULFATE (325 MG) 325 MG/TAB TABLET PO SCH (08:20)
[2018-07-25] MEDS: AMLODIPINE BESYLATE 2.5 MG TABLET PO SCH (08:20)
[2018-07-25] MEDS: PANTOPRAZOLE 40 MG TABLET.DR PO SCH (08:20)
[2018-07-25] MEDS: LACTOBACILLUS RHAMNOSUS GG 1 EACH CAP.SPRINK PO SCH (08:20)
[2018-07-25] MEDS: HEPARIN SODIUM, PORCINE 5000 UNITS/1 ML VIAL SQ SCH (08:21)
[2018-07-25] MEDS: OLOPATADINE HCL 0.1% OPHTH BOTTLE EACHEYE SCH (08:25)
--- NOTE | 2018-07-25 16:21 | NUR ---
RN MS CLOSING NOTES Patient discharged on room air, no sob noted. Patient's belonging that was in the belongings list was present at the time of discharge. Patient stated however that she had a cellphone at one point of her stay in the hospital. Patient cannot pin point the exact location of when she last had it. Patient had every item in the items list. Patient is given d/c instruction and paperworks, signed, and has no concerns about any of the instructions. Patient left on private car with her son.
== END 2018-07-25 14:10 | disposition home health service (06) | DRG 280 ==
LOC: ER 04:12 → ICU 08:11 → MEDSG1 07-24 13:42 → MED 07-24 14:08
PROVIDERS: ADMIT Internal Medicine; ATTEND Internal Medicine
DX: I13.2 Hypertensive heart and chronic kidney disease with heart failure and with stage 5 chronic kidney disease, or end stage renal disease (principal); I50.33 Acute on chronic diastolic (congestive) heart failure; I21.4 Non-ST elevation (NSTEMI) myocardial infarction; J15.9 Unspecified bacterial pneumonia; N18.6 End stage renal disease; J96.01 Acute respiratory failure with hypoxia; I25.10 Atherosclerotic heart disease of native coronary artery without angina pectoris; D63.8 Anemia in other chronic diseases classified elsewhere; Z99.2 Dependence on renal dialysis; E11.22 Type 2 diabetes mellitus with diabetic chronic kidney disease; Z87.891 Personal history of nicotine dependence; I35.0 Nonrheumatic aortic (valve) stenosis; E11.51 Type 2 diabetes mellitus with diabetic peripheral angiopathy without gangrene; Z88.8 Allergy status to other drugs, medicaments and biological substances; Z79.82 Long term (current) use of aspirin; Z79.01 Long term (current) use of anticoagulants; Z79.4 Long term (current) use of insulin; Z79.899 Other long term (current) drug therapy; I25.2 Old myocardial infarction; E78.5 Hyperlipidemia, unspecified; I50.9 Heart failure, unspecified; Z98.61 Coronary angioplasty status
CPT/HCPCS: 36415; 71045-TC; 80048-TC; 80061-TC; 80076-TC; 81000-TC; 82330; 82550-TC; 82962-TC; 83605-TC; 83735-TC; 83880; 84100-TC; 84443-TC; 84484-TC; 85025-TC; 85730-TC; 86850-TC; 87040-TC; 87081-TC; 87086-TC; 90935-TC; 93307-TC; A4216; A6402; A6403; C9113; G0378; J0456; J0610; J0696; J1644; J1815; J1940; J2405; J3490; J7050; J7060

== ENCOUNTER 2018-07-30 00:52 | Inpatient (IN) | payer MEDICARE, MEDICAID ==
[~2018-07-30] VITALS: Ht 167.6 cm; Wt 74.8 kg
[2018-07-30] VITALS (7 sets, daily range): BP systolic 128–171; BP diastolic 62–88
[~2018-07-30 00:52] MED LIST changes: +CARV6.252 PO; +CLOP100P PO
--- NOTE | 2018-07-30 01:03 | NUR ---
PT TO ER BED 3. BIB FAMILY. AAOX4. NAD DISTRESS, BREATING IS EVEN AND UNLABORED. DENIES CP. NO SOB. CAME IN WITH C/O NOSEBLEEDING. PT TAKING BLOOD THINNER. SHE IS AN HD PT. MD AT BEDSIDE FOR EVAL.
--- NOTE | 2018-07-30 01:03 | NUR ---
Note undone in EDM - 07/30/18 at 0413 by DHEERAJ PT TO ER BED 3. BIB FAMILY. AAOX4. NAD DISTRESS, BREATING IS EVEN AND UNLABORED. DENIES CP. NO SOB. CAME IN WITH C/O NOSEBLEEDING. PT DENIES TAKING ANY BLOOD THINNER. SHE IS AN HD PT. MD AT BEDSIDE FOR EVAL.
[2018-07-30] MEDS ORDERED: OXYMETAZOLINE HCL NASAL SPRAY 30 ML BOTTLE NS ONE ×2 (01:27→01:30)
[2018-07-30 01:34] LABS: BASOPHILS # (AUTO) 0.1 /CMM (0.0-0.2); BASOPHILS % (AUTO) 1.2 % (0.0-2.0); EOSINOPHILS % (AUTO) 3.9 % (0.0-6.0); HEMATOCRIT 21 % (33-45); HEMOGLOBIN 7.1 g/dL (11.5-14.8); LYMPHOCYTES % (AUTO) 24.2 % (20.0-44.0); MEAN CORPUSCULAR HGB CONC 33 g/dl (31.0-36.0); MEAN CORPUSCULAR VOLUME 86 fL (82-100); MONOCYTES # (AUTO) 0.5 /CMM (0.1-1.30); MONOCYTES % (AUTO) 12.7 % (2.0-12.0); NEUTROPHILS # (AUTO) 2.4 /CMM (1.8-8.9); PLATELET COUNT (AUTO) 223 /CMM (150-450); RED BLOOD CELL COUNT(AUTO) 2.48 MIL/uL (4.0-5.2); WHITE BLOOD COUNT (AUTO) 4.2 K/uL (4.3-11.0)
[2018-07-30 01:47] LABS: CARBON DIOXIDE 28 mmol/L (21-32); CHLORIDE 101 mmol/L (98-107); GLUCOSE 112 mg/dL (74-106); POTASSIUM 4.5 mmol/L (3.5-5.1); SODIUM SERUM 137 mmol/L (136-145); UREA NITROGEN, BLOOD 32 mg/dL (7-18)
--- NOTE | 2018-07-30 03:49 | NUR ---
CALLED [facility]. PAGED DEDE LEMONS, FERNANDO
--- NOTE | 2018-07-30 04:02 | NUR ---
BED ASSIGNMENT 119-2
--- NOTE | 2018-07-30 04:18 | NUR ---
REPORT GIVEN TO LIDIA VARELA. PT GOING TO [facility] 119-2
[2018-07-30] MEDS ORDERED: *INSULIN REGULAR(HUMULIN R)HUM 100 UNIT/ML VIAL SQ PRN (05:00)
[2018-07-30] MEDS ORDERED: Z GUARD REMEDY 2 OZ OINT TP PRN (05:00)
[2018-07-30] MEDS ORDERED: HYDROCODONE/APAP 5/325MG 1 EACH TABLET PO PRN (05:00)
[2018-07-30] MEDS ORDERED: DEXTROSE 50%-WATER 50 ML DISP.SYRIN IV PRN (05:00)
[2018-07-30] MEDS ORDERED: ACETAMINOPHEN 325 MG TABLET PO PRN (05:00)
[2018-07-30] MEDS ORDERED: ONDANSETRON HCL/PF 4 MG/2 ML VIAL IVP PRN (05:00)
--- NOTE | 2018-07-30 06:30 | NUR ---
RN NOTES 042 AM - ADMITTED 77 Y/O FEMALE PATIENT PALE LOOKING CAME FROM HOME PER PATIENT SHE WAS SLEEPING AND WOKE UP WITH DRIPPING BLOOD ON HER NOSE WHEN SHE SNEEZED. PATIENT IS AOX4 ABLE TO VERBALIZED THE WHOLE SITUATION . NO ACUTE RESPIRATORY DISTRESS. AMBULATE WITH MINIMAL ASSIST WHEN TRANSFERRING FROM GURNEY TO BED. NO SOB ON ROOM AIR. IV SITE ON RH G 20 INTACT AND PATENT. PLACED ON TELE MONITOR AND REVEALS SR WITH FIRST DEGREE AVB WITH BBB HR 80'S-90'S. DENIES CHEST PAIN, ABDOMINAL PAIN, - N/V. ARTHUR LEGS SWOLLEN. CALL IGHT KEPT IWTHN EASY REACH,, INSTRUCTION PROVIDED WELL ORIENTATION FROM SURROUNDING. ALL NEEDS ATTENDED. KEPT PATIENT CLEAN AND COMFORTABLE IN BED. BED IN LOWEST POSSIBLE POSITION. WILL CONTINUE TO MONITOR.
[2018-07-30 07:10] LABS: BASOPHILS % (AUTO) 0.7 % (0.0-2.0); EOSINOPHILS % (AUTO) 2.8 % (0.0-6.0); HEMATOCRIT 21 % (33-45); LYMPHOCYTES # (AUTO) 0.9 /CMM (0.8-4.8); LYMPHOCYTES % (AUTO) 22.2 % (20.0-44.0); MEAN CORPUSCULAR HGB CONC 32 g/dl (31.0-36.0); MEAN CORPUSCULAR VOLUME 86 fL (82-100); MONOCYTES # (AUTO) 0.5 /CMM (0.1-1.30); MONOCYTES % (AUTO) 12.2 % (2.0-12.0); NEUTROPHILS # (AUTO) 2.6 /CMM (1.8-8.9); NEUTROPHILS % (AUTO) 62.1 % (43.0-81.0); PLATELET COUNT (AUTO) 191 /CMM (150-450); RED BLOOD CELL COUNT(AUTO) 2.37 MIL/uL (4.0-5.2); WHITE BLOOD COUNT (AUTO) 4.2 K/uL (4.3-11.0)
[2018-07-30 07:24] LABS: HEMOGLOBIN 6.6 g/dL (11.5-14.8)
[2018-07-30 07:31] LABS: CALCIUM, SERUM 8.8 mg/dL (8.5-10.1); CARBON DIOXIDE 27 mmol/L (21-32); CHLORIDE 104 mmol/L (98-107); GLUCOSE 121 mg/dL (74-106); MAGNESIUM 2.5 mg/dL (1.8-2.4); POTASSIUM 4.7 mmol/L (3.5-5.1); SODIUM SERUM 139 mmol/L (136-145)
[2018-07-30 08:03] LABS: UREA NITROGEN, BLOOD 39 mg/dL (7-18)
[2018-07-30] MEDS: INSULIN REGULAR, HUMAN 100 UNIT/ML 3 ML VIAL SQ PRN ×4 (08:32→22:38)
[2018-07-30] MEDS: BLOOD SUGAR DIAGNOSTIC 1 EACH STRIP IN SCH ×4 (08:32→22:34)
[2018-07-30] MEDS: SEVELAMER CARBONATE 800 MG TABLET PO SCH ×3 (08:44→17:18)
[2018-07-30] MEDS: CLOPIDOGREL BISULFATE 75 MG TABLET PO SCH (08:45)
[2018-07-30] MEDS: FERROUS SULFATE (325 MG) 325 MG/TAB TABLET PO SCH (08:45)
[2018-07-30] MEDS: AMLODIPINE BESYLATE 10 MG TABLET PO SCH (09:00)
[2018-07-30] MEDS: CARVEDILOL 6.25 MG TABLET PO SCH ×2 (09:00→17:00)
--- NOTE | 2018-07-30 09:00 | NUR ---
Pt seen & examined by Dr. Ramirez w/ orders made & carried out.
[2018-07-30 09:16] LABS: EOSINOPHILS % (MANUAL) 6 % (0-4); LYMPHOCYTES % (MANUAL) 23 % (16-48); MONOCYTES % (MANUAL) 9 % (0-11.0); NEUTROPHILS % (MANUAL) 62 (42-76)
[2018-07-30] MEDS: OLOPATADINE HCL 0.1% OPHTH BOTTLE EACHEYE SCH (10:00)
--- NOTE | 2018-07-30 10:00 | NUR ---
Per Sienna QUINONEZ RN, pt will be dialyze in the afternoon. Informed him pt to have BT. Addendum: 07/30/18 at 1518 by GILL FAN RN Addendum: Held AM BP meds for scheduled HD today.
[2018-07-30] MEDS: ASPIRIN 81 MG TAB.CHEW PO SCH (10:20)
--- NOTE | 2018-07-30 11:12 | NUR ---
INITIAL RN NOTES RECEIVED PATIENT IN BED AWAKE ALERT AND ORIENTED X3. NO PAIN OR ACUTE DISTRESS AT THIS TIME. NO SOB. PATIENT ABLE TO MAKE NEEDS KNOWN. PATIENT ON ROOM AIR WITH 02 SAT OF 99%. IV ON R HAND 20 GAUGE NOTED. SAFETY MEASURES OBSERVED AT ALL TIMES. BED ALARM ON. ALL NEEDS ANTICIPATED. BED IS LOW AND IN LOCKED POSITION. PLAN OF CARE DISCUSSED WITH PATIENT. WILL CONTINUE TO MONITOR. Addendum: 07/30/18 at 1128 by JONI MONET RN CORRECTION TIME ASSESSMENT @ 0770 Addendum: 07/30/18 at 1129 by JONI MONET RN ERROR ON INPUT TIME. INITIAL ASSESSMENT DONE AT 0715.
[2018-07-30] MEDS ORDERED: EPOETIN ALFA (10,000 UNIT) 10,000 UNIT/ML VIAL IV ONE (15:00)
--- NOTE | 2018-07-30 15:00 | NUR ---
Rec'd call from Lucina QUINONEZ RN, she stated that pt will be dialyze around 6-7pm. Pt also updated about the time of HD.
--- NOTE | 2018-07-30 19:06 | NUR ---
RN CLOSING NOTES PATIENT IN BED AWAKE AND CURRENTLY HAVING DIALYSIS WITH DIALYSIS NURSE AT BEDSIDE. 1UNIT OF BLOOD WAS VERIFIED AND GIVEN TO BE INFUSED DURING DIALYSIS. INITIAL VITALS WAS BP-128/70 P-83 T-98.0 02 SAT 100%. AWAKE ALERT AND ORIENTED X3. NO PAIN OR ACUTE DISTRESS AT THIS TIME. NO SOB. PATIENT ABLE TO MAKE NEEDS KNOWN. SAFETY MEASURES OBSERVED AT ALL TIMES. BED ALARM ON. ALL NEEDS ANTICIPATED. BED IS LOW AND IN LOCKED POSITION. PLAN OF CARE DISCUSSED WITH PATIENT. ENDORSED TO PM NURSE FOR LAURENCE.
[2018-07-30 20:04] LABS: HEMOGLOBIN 7.7 g/dL (11.5-14.8)
[2018-07-30] MEDS ORDERED: ATORVASTATIN 10 MG TABLET PO SCH (22:00)
[2018-07-31 04:00] VITALS: BP 114/57
[2018-07-31 06:58] LABS: CHOLESTEROL 97 mg/dL (<200); HDL CHOLESTEROL 42 mg/dL (40-60); LDL 48 mg/dL (0-99); TRIGLYCERIDES 91 mg/dL (30-150)
[2018-07-31 07:01] LABS: ALANINE AMINOTRANSFERASE 14 U/L (12-78); ALBUMIN 2.8 g/dL (3.4-5.0); ALKALINE PHOSPHATASE 72 U/L (46-116); ASPARTATE AMINOTRANSFERASE 13 U/L (15-37); BILIRUBIN,TOTAL 0.4 mg/dL (0.2-1.0); CALCIUM, SERUM 8.6 mg/dL (8.5-10.1); CARBON DIOXIDE 30 mmol/L (21-32); CHLORIDE 103 mmol/L (98-107); CREATININE 6.3 mg/dL (0.6-1.3); GLUCOSE 95 mg/dL (74-106); MAGNESIUM 2.2 mg/dL (1.8-2.4); PHOSPHORUS 2.5 mg/dL (2.5-4.9); POTASSIUM 4.7 mmol/L (3.5-5.1); SODIUM SERUM 138 mmol/L (136-145); TOTAL PROTEIN, SERUM 6.9 g/dL (6.4-8.2); UREA NITROGEN, BLOOD 37 mg/dL (7-18)
[2018-07-31 07:07] LABS: BASOPHILS % (AUTO) 0.8 % (0.0-2.0); EOSINOPHILS % (AUTO) 2.9 % (0.0-6.0); HEMATOCRIT 21 % (33-45); HEMOGLOBIN 7.1 g/dL (11.5-14.8); MEAN CORPUSCULAR HGB CONC 33 g/dl (31.0-36.0); MEAN CORPUSCULAR VOLUME 85 fL (82-100); MONOCYTES # (AUTO) 0.6 /CMM (0.1-1.30); MONOCYTES % (AUTO) 13.6 % (2.0-12.0); NEUTROPHILS # (AUTO) 2.5 /CMM (1.8-8.9); NEUTROPHILS % (AUTO) 58.7 % (43.0-81.0); PLATELET COUNT (AUTO) 181 /CMM (150-450); RED BLOOD CELL COUNT(AUTO) 2.51 MIL/uL (4.0-5.2); WHITE BLOOD COUNT (AUTO) 4.3 K/uL (4.3-11.0)
--- NOTE | 2018-07-31 07:25 | NUR ---
RN MS OPENING NOTES RECEIVED REPORT FROM HEALTH PROGRAM DIRECTOR RN. PT IS A&O X4 AND IS ABLE TO MAKE NEEDS KNOWN. PT DENIES ANY PAIN OR SOB AT PRESENT MOMENT. PT HAD NO EPISODE OF BLEEDING. PT IS SITTING IN BED. BED IS LOCKED AND IN LOWEST POSITION. WITH CALL LIGHT IN REACH. WILL CONTINUE TO MONITOR.
[2018-07-31 07:52] LABS: IRON, SERUM 46 ug/dl (50-175); TOTAL IRON BINDING CAPACITY 150 ug/dl (250-450)
[2018-07-31 08:00] VITALS: BP 149/74
[2018-07-31] MEDS: SEVELAMER CARBONATE 800 MG TABLET PO SCH ×2 (09:10→13:27)
[2018-07-31] MEDS: OLOPATADINE HCL 0.1% OPHTH BOTTLE EACHEYE SCH (09:10)
[2018-07-31] MEDS: BLOOD SUGAR DIAGNOSTIC 1 EACH STRIP IN SCH ×2 (09:10→13:58)
[2018-07-31] MEDS: ASPIRIN 81 MG TAB.CHEW PO SCH (09:11)
[2018-07-31] MEDS: FERROUS SULFATE (325 MG) 325 MG/TAB TABLET PO SCH (09:11)
[2018-07-31] MEDS: AMLODIPINE BESYLATE 10 MG TABLET PO SCH (09:12)
[2018-07-31] MEDS: CARVEDILOL 6.25 MG TABLET PO SCH (09:12)
[2018-07-31] MEDS: CLOPIDOGREL BISULFATE 75 MG TABLET PO SCH (09:13)
--- NOTE | 2018-07-31 15:00 | NUR ---
RN D/C NOTES PT IS STABLE. BELONGINGS GIVEN BACK TO PT. IV DC'ED. EXITCARE AND EDUCATION MATERIALS GIVEN TO PT. PT WILL F/U WITH PCP AND CONTINUE DIALYSIS TX OUTPATIENT. PT LEFT IN WHEELCHAIR WITH DAUGHTER. PT WILL BE GOING HOME IN PERSONAL VEHICLE.
[2018-07-31 15:09] VITALS: BP 111/54
--- NOTE | 2018-07-31 15:55 | NUR ---
Patient lives locally with her son Kamron. States she is ambulatory and independent with adl's. Has hx of ESRD, receives hemodialysis every MWF 4am at [facility] [phone].Current dc plan is to return home, family will provide ride. Addendum: 07/31/18 at 1968 by BETH KELLER RN Amended: Links added.
== END 2018-07-31 15:15 | disposition home or self-care (01) | DRG 150 ==
LOC: ER 00:54 → TELE1 03:58 → MEDSG1 11:35
PROVIDERS: ADMIT Nurse Practitioner Acute Care; ATTEND Nurse Practitioner Acute Care
PROC: 30233N1 Transfusion of Nonautologous Red Blood Cells into Peripheral Vein, Percutaneous Approach (ICD-10-PCS; principal; 2018-07-30)
PROC: 5A1D70Z Performance of Urinary Filtration, Intermittent, Less than 6 Hours Per Day (ICD-10-PCS; 2018-07-30)
DX: R04.0 Epistaxis (principal); N18.6 End stage renal disease; I13.2 Hypertensive heart and chronic kidney disease with heart failure and with stage 5 chronic kidney disease, or end stage renal disease; I50.32 Chronic diastolic (congestive) heart failure; I25.10 Atherosclerotic heart disease of native coronary artery without angina pectoris; E11.22 Type 2 diabetes mellitus with diabetic chronic kidney disease; Z99.2 Dependence on renal dialysis; Z88.8 Allergy status to other drugs, medicaments and biological substances; Z79.01 Long term (current) use of anticoagulants; Z79.82 Long term (current) use of aspirin; Z79.4 Long term (current) use of insulin; Z79.899 Other long term (current) drug therapy; I35.0 Nonrheumatic aortic (valve) stenosis; Z95.5 Presence of coronary angioplasty implant and graft; Z79.02 Long term (current) use of antithrombotics/antiplatelets; Z98.890 Other specified postprocedural states; D64.9 Anemia, unspecified; T50.905A Adverse effect of unspecified drugs, medicaments and biological substances, initial encounter; Y92.009 Unspecified place in unspecified non-institutional (private) residence as the place of occurrence of the external cause
CPT/HCPCS: 36415; 71045-TC; 80048-TC; 80053-TC; 80061-TC; 82962-TC; 83540-TC; 83735-TC; 84100-TC; 85025-TC; 85027-TC; 85730-TC; 86706; 86850-TC; 86921-TC; 87081-TC; 87340; 90935-TC; G0378; J0885; J1815; P9016-BL

== ENCOUNTER 2019-04-11 22:20 | Emergency (ER) | payer MEDICARE, OTHER ==
[~2019-04-11] VITALS: Ht 165.1 cm; Wt 70.3 kg
--- NOTE | 2019-04-11 22:25 | NUR ---
PT BIBRA. C/O "HAVING CP. GEN BODY PAIN. MISSED DIALYSIS X1 WEEK" -SOB VSS AT THIS TIME. PT CONNECTED TO THE MONITOR AND POX. BILATERAL SWELLING ON LOWER EXTREMITIES NOTED.
--- NOTE | 2019-04-11 22:25 | NUR ---
PT IS REFUSING TO ANSWER QUESTIONS.
--- NOTE | 2019-04-11 23:00 | NUR ---
FUR DRESSING SUPERVISOR AT BEDSIDE FOR BLOOD DRAW
[2019-04-11 23:07] LABS: BASOPHILS # (AUTO) 0.1 /CMM (0.0-0.2); BASOPHILS % (AUTO) 0.9 % (0.0-2.0); HEMATOCRIT 35 % (33-45); HEMOGLOBIN 11.3 g/dL (11.5-14.8); LYMPHOCYTES # (AUTO) 0.6 /CMM (0.8-4.8); LYMPHOCYTES % (AUTO) 7.5 % (20.0-44.0); MEAN CORPUSCULAR HGB CONC 33 g/dl (31.0-36.0); MEAN CORPUSCULAR VOLUME 84 fL (82-100); MONOCYTES # (AUTO) 0.7 /CMM (0.1-1.30); MONOCYTES % (AUTO) 7.7 % (2.0-12.0); NEUTROPHILS # (AUTO) 7.2 /CMM (1.8-8.9); NEUTROPHILS % (AUTO) 82.9 % (43.0-81.0); PLATELET COUNT (AUTO) 112 /CMM (150-450); RED BLOOD CELL COUNT(AUTO) 4.14 MIL/uL (4.0-5.2); WHITE BLOOD COUNT (AUTO) 8.7 K/uL (4.3-11.0)
[2019-04-11 23:17] LABS: CALCIUM, SERUM 9.1 mg/dL (8.5-10.1); CARBON DIOXIDE 16 mmol/L (21-32); CHLORIDE 94 mmol/L (98-107); GLUCOSE 131 mg/dL (74-106); POTASSIUM 5.6 mmol/L (3.5-5.1); SODIUM SERUM 128 mmol/L (136-145)
[2019-04-11 23:18] LABS: CREATININE 13.8 mg/dL (0.6-1.3); UREA NITROGEN, BLOOD 131 mg/dL (7-18)
--- NOTE | 2019-04-11 23:18 | NUR ---
BUN 131 CREA 13.8
--- NOTE | 2019-04-12 | NUR ---
INFORMED CONSENT DONE.
--- NOTE | 2019-04-12 00:42 | NUR ---
PICC LINE INSERTION IN PROGRESS.
[2019-04-12] MEDS ORDERED: SODIUM POLYSTYRENE SULFONATE 15 G/60 ML BOTTLE ONE (00:59)
[2019-04-12] MEDS ORDERED: SODIUM POLYSTYRENE SULFONATE 15 G/60 ML BOTTLE RC ONE (01:00)
--- NOTE | 2019-04-12 02:52 | NUR ---
GENE SON [phone]
--- NOTE | 2019-04-12 03:21 | NUR ---
Patient is resting comfortably in bed with eyes closed. Easily aroused. VSS
--- NOTE | 2019-04-12 04:51 | NUR ---
mission. 201-b. NURSE FOR REPROT CYRUS RN. [phone]. [facility]. 0630 AM.
--- NOTE | 2019-04-12 05:23 | NUR ---
REPORT GIVEN TO LIDIA BRIDGES
[2019-04-12 05:38] VITALS: BP 144/85
--- NOTE | 2019-04-12 06:48 | NUR ---
REPORT GIVEN TO EMS, PT STABLE FOR TRANSFER
== END 2019-04-12 07:05 | disposition short-term general hospital (02) ==
LOC: ER 22:22
DX: I12.0 Hypertensive chronic kidney disease with stage 5 chronic kidney disease or end stage renal disease (principal); E11.22 Type 2 diabetes mellitus with diabetic chronic kidney disease; N18.6 End stage renal disease; I44.7 Left bundle-branch block, unspecified; Z95.5 Presence of coronary angioplasty implant and graft; Z98.890 Other specified postprocedural states; Z88.5 Allergy status to narcotic agent; Z60.2 Problems related to living alone; Z79.82 Long term (current) use of aspirin; Z79.899 Other long term (current) drug therapy
CPT/HCPCS: 36410; 36415; 71045-TC; 80048-TC; 84484-TC; 85025-TC; 87081-TC